=== PATIENT | male | born 1975 | race Caucasian/White ===

== ENCOUNTER 2020-07-30 04:07 | Emergency (ER) | payer OTHER ==
[2020-07-30 04:46] LABS: HEMOGLOBIN 17.5 gm/dl (14.0-17.5); RED BLOOD COUNT 5.47 M/UL (4.20-5.50); WHITE BLOOD COUNT 9.6 K/UL (4.5-11.0)
[2020-07-30 05:06] LABS: BUN/CREATININE RATIO 18 (0-10)
== END 2020-07-31 00:25 | disposition short-term general hospital (02) ==
LOC: ER1 04:07
PROVIDERS: Emergency Medicine
DX: R45.851 Suicidal ideations (principal); I10 Essential (primary) hypertension; E87.6 Hypokalemia; E11.65 Type 2 diabetes mellitus with hyperglycemia; R41.82 Altered mental status, unspecified; Z20.822 Contact with and (suspected) exposure to COVID-19; F17.210 Nicotine dependence, cigarettes, uncomplicated
CPT/HCPCS: 0240U; 80053; 80307; 81001; 82803; 82962; 84132; 84439; 84443; 85025; 93005; 96374; 99285; G0480; J2060

== ENCOUNTER 2021-05-25 18:07 | Emergency (ER) | payer OTHER ==
[2021-05-25 18:38] LABS: HEMOGLOBIN 18.2 gm/dl (14.0-17.5); RED BLOOD COUNT 5.62 M/UL (4.20-5.50); WHITE BLOOD COUNT 8.4 K/UL (4.5-11.0)
[2021-05-25 20:02] LABS: BUN/CREATININE RATIO 20 (0-10)
[2021-05-25] MEDS ORDERED: CEPHALEXIN500 MG PO (22:55)
== END 2021-05-25 23:05 | disposition home or self-care (01) ==
LOC: ER1 18:07
PROVIDERS: Preventive Medicine Occupational Medicine
DX: S02.31XA Fracture of orbital floor, right side, initial encounter for closed fracture (principal); S02.40DA Maxillary fracture, left side, initial encounter for closed fracture; S01.81XA Laceration without foreign body of other part of head, initial encounter; I10 Essential (primary) hypertension; E11.9 Type 2 diabetes mellitus without complications; F10.929 Alcohol use, unspecified with intoxication, unspecified; Y04.0XXA Assault by unarmed brawl or fight, initial encounter
CPT/HCPCS: 36600; 70450; 70486; 71045; 80053; 80307; 81001; 82009; 82140; 82550; 82553; 82803; 83036; 83605; 83690; 83874; 83880; 84484; 85025; 85652; 86140; 87086; 93005; 96374; 99284; G0480; J3411; J3475; J7030

== ENCOUNTER → 2021-06-28 | Outpatient (CLI) | payer OTHER ==
[~2021-06-28] MED LIST: CEPHALEXIN500 MG PO
== END ==
LOC: KOH-I 09:06
DX: S09.90XA Unspecified injury of head, initial encounter (principal)
CPT/HCPCS: 70450